=== PATIENT | female | born 1970 ===

== ENCOUNTER 2025-02-09 05:09 | Day surgery (SDC) | payer OTHER ==
[2025-02-09] MEDS ORDERED: POVIDONE-IODINE 118 ML BOTT TOP ONE (06:59)
[2025-02-09] MEDS ORDERED: DIBUCAINE 30 GM TUBE ONE (06:59)
[2025-02-09] MEDS ORDERED: BUPIVACAINE HCL/MPF 0.5% 30ML VIAL ONE (06:59)
[2025-02-09] MEDS ORDERED: CEFTRIAXONE SODIUM 2,000 MG VIAL ONE (06:59)
[2025-02-09] MEDS ORDERED: LIDOCAINE HCL 1%/EPINEPHRINE 20ML VIAL IJ ONE (06:59)
[2025-02-09] MEDS ORDERED: HEMOSTATIC MATRIX 1 KIT KIT TOP ONE (06:59)
[2025-02-09] MEDS ORDERED: METRONIDAZOLE/SODIUM CHLORIDE 500 MG/100 ML PIGGYBACK IV ONE (07:00)
[2025-02-09] MEDS ORDERED: COLACE100 MG PO (08:11)
[2025-02-09] MEDS ORDERED: TRAM1TAB98 PO (08:11)
== END 2025-02-09 13:25 | disposition home or self-care (01) ==
LOC: CIR.AMB 05:09
PROVIDERS: ATTEND Surgery
DX: D12.8 Benign neoplasm of rectum (principal); K62.89 Other specified diseases of anus and rectum